=== PATIENT | male | born 1965 | race African-American/Black ===

== ENCOUNTER 2018-06-26 08:04 | Day surgery (SDC) | payer OTHER, SELFPAY ==
[2018-06-26 08:44] VITALS: BP 143/84; PULSE 87; RESP 16; TEMP 36.6; O2SAT 97; BMI 30.4
[2018-06-26] MEDS: SODIUM CHLORIDE 0.9% 1,000 ML 200 ML IV (08:50)
--- NOTE | 2018-06-26 09:24 | PM.HP.1 ---
History of Present Illness Date Patient Seen: 06/26/18 Time Patient Seen: 09:24 Chief complaint: colonoscopy 52604 Narrative: 53-year-old male who presents for colorectal screening. His last endoscopy was 2009. He reports the study was normal at that time. On further history today he denies any recent gastrointestinal symptoms. No nausea, vomiting, abdominal pain, loss of appetite, unexplained weight loss, change in bowel habits, diarrhea, constipation, melena, hematochezia, or bright red blood per rectum. Patient History Medical History Erectile disorder due to medical condition in male (Acute) Hypertension (Acute) Obstructive sleep apnea (Acute) Surgical History History of colonoscopy (Acute) History of repair of left rotator cuff (Acute) History of repair of right rotator cuff (Acute) Family & Social History Family History: Reviewed 06/26/18 by Ariel Brock MD Social History: household members spouse Nonsmoker Meds Home Medications Medication Instructions Recorded Confirmed Type sildenafil 25 mg PO DAILY PRN 06/26/18 06/26/18 History Allergies Allergy/AdvReac Type Severity Reaction Status Date / Time No Known Drug Allergies Allergy Verified 06/26/18 08:42 Review of Systems Review of Systems All systems reviewed & are unremarkable except as noted in HPI and below Exam Vital Signs (past 8 hours): - 06/26/18 08:44 Temperature 97.8 F Pulse Rate 87 Respiratory Rate 16 Blood Pressure 143/84 H Pulse Oximetry 97 Oxygen Delivery Method Room Air Narrative Exam Narrative: Well-nourished well-developed male in no acute distress. Alert orient x3. is at the bedside for my entire visit Sclera nonicteric Chest clear to auscultation bilaterally with regular rate and rhythm. No murmurs, gallops, rubs Abdomen soft, nondistended, nontender, no masses Extremities show no clubbing or cyanosis Objective Labs Labs: No recent laboratory or radiographic studies for review Assessment & Plan Plan: Assessment/Plan Narrative: 53-year-old male requiring colorectal screening by age criteria. Furthermore, it has been a number of years since his last examination. Colonoscopy is currently recommended. Technical details of the procedure were discussed. Risks, benefits, alternatives were explained. Risks including but not limited to sedation, aspiration, bleeding, pain, missed lesion, incomplete examination, need for further radiographic studies, colonic perforation, need for major abdominal surgery, and all attendant risks of major surgery were discussed in detail. All questions were answered to his satisfaction, and he voiced understanding. Consent was placed on the chart. We will proceed as above.
--- NOTE | 2018-06-26 09:29 | P.HP_ITS ---
History of Present Illness Date Patient Seen: 06/26/18 Time Patient Seen: 09:24 Chief complaint: colonoscopy 99018 Narrative: 53-year-old male who presents for colorectal screening. His last endoscopy was 2009. He reports the study was normal at that time. On further history today he denies any recent gastrointestinal symptoms. No nausea, vomiting, abdominal pain, loss of appetite, unexplained weight loss, change in bowel habits, diarrhea, constipation, melena, hematochezia, or bright red blood per rectum. Patient History Medical History Erectile disorder due to medical condition in male (Acute) Hypertension (Acute) Obstructive sleep apnea (Acute) Surgical History History of colonoscopy (Acute) History of repair of left rotator cuff (Acute) History of repair of right rotator cuff (Acute) Family & Social History Family History: Reviewed 06/26/18 by Ariel Brock MD Social History: household members spouse Nonsmoker Meds Home Medications Medication Instructions Recorded Confirmed Type sildenafil 25 mg PO DAILY PRN 06/26/18 06/26/18 History Allergies Allergy/AdvReac Type Severity Reaction Status Date / Time No Known Drug Allergies Allergy Verified 06/26/18 08:42 Review of Systems Review of Systems All systems reviewed & are unremarkable except as noted in HPI and below Exam Vital Signs (past 8 hours): - 06/26/18 08:44 Temperature 97.8 F Pulse Rate 87 Respiratory Rate 16 Blood Pressure 143/84 H Pulse Oximetry 97 Oxygen Delivery Method Room Air Narrative Exam Narrative: Well-nourished well-developed male in no acute distress. Alert orient x3. is at the bedside for my entire visit Sclera nonicteric Chest clear to auscultation bilaterally with regular rate and rhythm. No murmurs , gallops, rubs Abdomen soft, nondistended, nontender, no masses Extremities show no clubbing or cyanosis Objective Labs Labs: No recent laboratory or radiographic studies for review Assessment & Plan Plan: Assessment/Plan Narrative: 53-year-old male requiring colorectal screening by age criteria. Furthermore, it has been a number of years since his last examination. Colonoscopy is currently recommended. Technical details of the procedure were discussed. Risks, benefits, alternatives were explained. Risks including but not limited to sedation, aspiration, bleeding, pain, missed lesion, incomplete examination, need for further radiographic studies, colonic perforation, need for major abdominal surgery, and all attendant risks of major surgery were discussed in detail. All questions were answered to his satisfaction, and he voiced understanding. Consent was placed on the chart. We will proceed as above.
--- NOTE | 2018-06-26 09:29 | PM.PREOP ---
Pre-operative Note Interval Note Pre-op Check: Yes History & Physical Reviewed by Physician, Yes Exam Performed and Yes History & Physical exam performed today by Physician Changes: No H&P completed within 30 days and has changed as indicated here:: Patient seen and examined today. History physical examination documented and placed on the chart today. Proceed with colonoscopy as planned. ASA Class (for procedural sedation): II
[2018-06-26] MEDS: MIDAZOLAM 5 MG/5 ML VIAL IV (09:44)
[2018-06-26] MEDS: fentaNYL 250 MCG/5 ML INJ IV (09:44)
--- NOTE | 2018-06-26 09:52 | PM.OP.ENDO ---
Operative Date/Time/Diagnoses Date of procedure: 06/26/18 Time of procedure: 09:52 Pre-op diagnosis: Colorectal screening Post-op diagnosis: other (Normal colon and rectum) Procedure & Clinicians Study performed: 1. Sedation per surgeon 2. Colonoscopy Same procedure as scheduled: Yes Indications: 53-year-old male who presents for colorectal screening. It has been nearly 10 years since his last examination. Colonoscopy is once again recommended. Surgeon: Ariel Brock Procedure Notes SCOAP/Timeout: Yes Procedure in detail: After obtaining informed consent, the patient was brought to the GI suite and placed in the left lateral decubitus position on the examination table. After placement of appropriate monitors, the patient was given incremental doses of Versed and Fentanyl until an appropriate level of sedation was achieved. A time out was held per SCOAP protocol. A digital rectal examination was performed and did not reveal any masses or obstructing lesions. The colonoscope was gently passed into the patient's anus and the entire colon navigated to the level of the cecum with minimal difficulty. Once in the cecum, the scope was withdrawn being sure to go before and beyond all mucosal folds and prominences and get an excellent examination. The findings are noted above. At the level of the rectal vault, the scope was retroflexed and the internal anal canal was examined. The scope was straightened and air aspirated from the colon. The instrument was removed from the patient's body and the procedure was concluded. The patient was allowed to awaken from sedation without difficulty and taken to the post-anesthesia care unit in good condition. Scope withdrawal time: 7:36 min Sedation minutes: 21 Findings: other findings (Normal colon and rectum) Specimen(s): none sent Complications: none Recommendations: Colonscopy in 10 years and High fiber diet Plan for aftercare: 1. Discharged home Follow up: as needed Disposition: PACU
[2018-06-26 09:56] VITALS: BP 143/92; PULSE 90; RESP 12; O2SAT 99
[2018-06-26 10:01] VITALS: BP 132/97; PULSE 94; RESP 15; O2SAT 98
[2018-06-26 10:08] VITALS: BP 138/82; PULSE 85; RESP 15; TEMP 37; O2SAT 94
== END 2018-06-26 10:21 | disposition home or self-care (01) ==
PROVIDERS: Visit Provider Surgery
PROC: 0DJD8ZZ Inspection of Lower Intestinal Tract, Via Natural or Artificial Opening Endoscopic (ICD-10-PCS; CPT 45378; principal; 2018-06-26 09:45)
DX: Z12.11 Encounter for screening for malignant neoplasm of colon (principal); I10 Essential (primary) hypertension; G47.33 Obstructive sleep apnea (adult) (pediatric)
CPT/HCPCS: 45378; 99152; J2250; J3010

== ENCOUNTER → 2021-02-17 15:27 | Outpatient (CLI) | payer OTHER, SELFPAY ==
--- NOTE | 2021-02-17 15:31 | DI.MRI.S_ITS ---
PROCEDURE: MR LUMBAR SPINE WO CON INDICATIONS: Spinal stenosis, lumbar region with neurogenic cla TECHNIQUE: Noncontrast sagittal T1 spin echo and T2 fast echo, sagittal STIR, axial T1 and T2 fast spin echo through the lumbar spine. In cases with scoliosis, additional coronal T2 fast spin echo may be performed. COMPARISON: [facility], MR, L-SPINE WITHOUT CONTRAST, 11/27/2014, 18:04. FINDINGS: Image quality: Excellent. Alignment and Curvature: Straightening of the normal lordotic curvature. Bone Marrow: No evidence of acute fracture. Multilevel degenerative endplate sclerosis and spurring. Diffuse facet arthropathy. Spinal Cord: Conus medullaris terminates at the L1-L2 level. Visualized cord demonstrates normal signal and size. Paraspinous Soft Tissues: No paravertebral masses. T12-L1: Normal appearance. L1-L2: Normal appearance. L2-L3: Posterior annular fissure. Lfib-mj-fydmrmoa canal narrowing which appears progressed since the prior study. Partial effacement of both lateral recesses with bilaterally symmetric appearance. Moderate left foraminal stenosis with slight nerve root compression. This appears progressed since the prior study. Mild right foraminal narrowing which is unchanged L3-L4: No canal stenosis or lateral recess narrowing. Mild right foraminal stenosis. Moderate left foraminal stenosis with slight nerve root compression although this appears unchanged. L4-L5: No definite canal stenosis. Partial effacement of both lateral recesses with bilaterally symmetric appearance. Severe left foraminal narrowing with slight nerve root compression. Moderate right foraminal stenosis. Overall, no interval change since the prior study. L5-S1: No definite canal narrowing. Partial effacement of both lateral recesses with bilaterally symmetric appearance. Mild right foraminal narrowing. Mild left foraminal stenosis. IMPRESSION: Slight interval progression in L2-L3 left foraminal stenosis. Otherwise, grossly stable examination as detailed above by spinal level. Straightening of the normal lordotic curvature. Dictated by: Scooby Jesus M.D. on 02/17/2021 at 16:54 Approved by: Scooby Jesus M.D. on 02/17/2021 at 16:59
== END ==
PROVIDERS: Referring Provider Physical Medicine & Rehabilitation Pain Medicine; Visit Provider Physical Medicine & Rehabilitation Pain Medicine
DX: M48.062 Spinal stenosis, lumbar region with neurogenic claudication (principal)
CPT/HCPCS: 72148

== ENCOUNTER 2021-06-13 03:13 | Emergency (ER) | payer OTHER, SELFPAY ==
[2021-06-13] VITALS (20 sets, daily range): BP systolic 126–162; BP diastolic 73–103; PULSE 98–122; RESP 16–18; TEMP 36.4–37.2; O2SAT 97–100; BMI 28.8
[2021-06-13 03:51] LABS: Add Manual Diff / Slide Review NO; Basophils Absolute Auto 100 /uL (0-100); Basophils Percent Auto 0.7 % (0-2); Eosinophils Absolute Auto 0 /uL (0-450); Eosinophils Percent Auto 0.2 % (2-4); Hematocrit 37.2 % (41-53); Hemoglobin 12.2 g/dL (13.5-17.5); Lymphocytes Absolute Auto 2000 /uL (1100-4500); Lymphocytes Percent Auto 10.7 % (25-40); Mean Corpuscular HGB Conc 32.8 % (30-36); Mean Corpuscular Hemoglobin 26.8 PG (26-34); Mean Corpuscular Volume 81.9 fL (80-100); Monocytes Absolute Auto 1600 /uL (0-900); Monocytes Percent Auto 8.7 % (3-14); Neutrophils Absolute Auto 14800 /uL (1500-7000); Neutrophils Percent Auto 79.7 % (50-75); Platelet Count 278 X10^3/uL (150-400); Red Blood Cell Count 4.54 X10^6/uL (4.5-5.9); Red Cell Distribution Width 14.6 % (11.6-14.8); White Blood Cell Count 18.5 X10^3/uL (4.5-11.0)
--- NOTE | 2021-06-13 03:54 | ED_ITS ---
HPI - GI Bleed General Chief complaint: GI Bleed Stated complaint: states blood in stool Time Seen by Provider: 06/13/21 03:15 Source: patient Mode of arrival: Ambulatory Limitations: no limitations History of Present Illness HPI Narrative: 56-year-old male nonsmoker with noncontributory medical history presents with his in the chief complaint of a large amount of bright red blood associated with lower abdominal pain since having a very forceful and difficult bowel movement yesterday. He states that he was straining incredibly hard and felt pain in his lower abdomen and has passed multiple large, bright red stools since then. He takes no blood thinners. He is not dizzy nor weak or lightheaded. He denies fever or chills. He has had no nausea or vomiting. He does have a history of bleeding hemorrhoids but states this feels much different. Related Data Home Medications Medication Instructions Recorded Confirmed sildenafil 25 mg tablet 25 mg PO DAILY PRN 06/26/18 06/26/18 Allergies Allergy/AdvReac Type Severity Reaction Status Date / Time No Known Drug Allergies Allergy Verified 06/26/18 08:42 Review of Systems Review of Systems Narrative: GENERAL: Denies chills, fatigue, malaise, fever, sweats. HEENT: Denies sinus pain, ear pain, sore throat, difficulty swallowing, dizziness. RESPIRATORY: Denies dyspnea, cough, wheezing, hemoptysis, sputum. CARDIOVASCULAR: See HPI GASTROINTESTINAL: See HPI : Denies dysuria, frequency, incontinence, hematuria, urinary retention. MUSCULOSKELETAL: denies weakness, joint pain, or bony pain SKIN: Denies rash, skin lesions, or other NEUROLOGIC: Denies weakness, headache, numbness, change in speech, confusion, seizures, incoordination. PSYCHIATRIC: No concerning psychosocial issues. 12 point review of systems is negative except for those stated above Patient History Medical History Erectile disorder due to medical condition in male Hypertension Obstructive sleep apnea Surgical History History of colonoscopy History of repair of left rotator cuff History of repair of right rotator cuff Family History Sister Colon polyps Social History household members: spouse Smoking Status: Never smoker Smoking Status: Never smoker alcohol intake frequency: 3 or more drinks per day Substance Use Type: does not use Exam Narrative Exam Narrative: GENERAL: [56] year old patient appears stated age. Well-deve loped patient, in mild distress. Anxious HEAD: Atraumatic. Normocephalic. EYES: Pupils equal round and reactive. Extraocular motions intact. No scleral icterus. No injection or drainage. ENT: Nose without bleeding, purulent drainage. Throat without erythema, tonsillar hypertrophy or exudate. Airway patent. NECK: Trachea midline. Non tender CARDIOVASCULAR: Tachycardic but regular rhythm without murmurs, gallops, or rubs. RESPIRATORY: Clear to auscultation. Breath sounds equal bilaterally. No wheezes, rales, or rhonchi. GASTROINTESTINAL: Abdomen soft, tender in the suprapubic and left lower quadrant, nondistended. Bowel sounds present in all 4 quadrants RECTAL: No fissure, no external or internal hemorrhoids noted. Minimal pain, very minimal blood noted EXTREMITIES: No edema or joint tenderness. BACK: Nontender without deformity or crepitance. No flank tenderness. NEURO: AOx3. SKIN: No rash or erythema of visible areas Initial Vital Signs Initial Vital Signs: Vital Signs Temperature 97.5 F L 06/13/21 03:21 Pulse Rate 121 H 06/13/21 03:21 Respiratory Rate 17 06/13/21 03:21 Blood Pressure 162/103 H 06/13/21 03:21 Pulse Oximetry 99 06/13/21 03:21 Course Orders Ordered: ED Orders 06/13/21 03:40 Complete Blood Count AUTO DIFF Stat Comprehensive Metabolic Panel Stat Lactate (Lactic Acid) Stat Type and Screen Stat 06/13/21 03:55 CT abdomen pelvis w con Stat 06/13/21 05:15 COVID19 - ADMIT (GENERAL [employer]PER swab/PCR) Stat 06/13/21 05:30 Blood Culture Stat Clindamycin Phosphate (Cleocin) 900 mg in 50 mls @ 50 mls/hr IV NOW ONE Stop: 06/13/21 07:27 Last Admin: 06/13/21 06:37 Dose: 50 mls/hr Documented by: Lactated Ringer's (Lactated Ringers) 1,000 mls @ 1,000 mls/hr IV BOLUS ONE Stop: 06/13/21 07:36 Discontinued Medications Sodium Chloride (Normal Saline 0.9%) 1,000 mls @ 1,000 mls/hr IV BOLUS ONE Stop: 06/13/21 04:54 Last Infusion: 06/13/21 05:02 Dose: 0 mls/hr Documented by: Admin: 06/13/21 03:58 Dose: 1,000 mls/hr Documented by: KGRAJINDER Piperacillin Sod/Tazobactam (Sod 4.5 gm/ Sodium Chloride) 100 mls @ 200 mls/hr IV NOW ONE Stop: 06/13/21 05:14 Last Admin: 06/13/21 05:36 Dose: 200 mls/hr Documented by: MAURO Metronidazole (Flagyl) 500 mg in 100 mls @ 100 mls/hr IV NOW ONE Stop: 06/13/21 06:18 Last Admin: 06/13/21 05:56 Dose: 100 mls/hr Documented by: Consultations Consultation #1: discussed case with Dr. Alexandra upon receipt of CT. Need to transfer as OR is down at least today. Consultation #2: [facility]. No beds [place] No beds [facility]. No beds [facility]. No beds Consultation #3: has available beds, discussed with Dr. Mcclellan, happy to accept. Requests addition of Clinda and on going fluids Vital Signs Vital signs: Vital Signs - 8 hr 06/13/21 03:21 06/13/21 03:25 06/13/21 03:30 Temperature 97.5 F L Pulse Rate 121 H 121 H 122 H Respiratory Rate 17 Blood Pressure 162/103 H Pulse Oximetry 99 100 99 06/13/21 03:41 06/13/21 04:00 06/13/21 04:30 Temperature Pulse Rate 119 H 108 H 103 H Respiratory Rate Blood Pressure 136/90 126/79 Pulse Oximetry 99 99 100 06/13/21 04:43 06/13/21 05:00 06/13/21 05:30 Temperature 99 F Pulse Rate 112 H 104 H 112 H Respiratory Rate Blood Pressure 151/97 H 140/85 144/87 H Pulse Oximetry 100 100 99 06/13/21 06:00 06/13/21 06:30 Temperature Pulse Rate 111 H 111 H Respiratory Rate 16 16 Blood Pressure 150/78 H 146/86 H Pulse Oximetry 100 100 MDM - GI Bleed Lab Data Result diagrams: 06/13/21 03:40 06/13/21 03:40 Labs: Lab Results 06/13/21 06/13/21 06/13/21 Range/Units 03:40 03:40 03:40 WBC 18.5 H (4.5-11.0) X10^3/uL RBC 4.54 (4.5-5.9) X10^6/uL Hgb 12.2 L (13.5-17.5) g/dL Hct 37.2 L (41-53) % MCV 81.9 (80-100) fL MCH 26.8 (26-34) PG MCHC 32.8 (30-36) % RDW 14.6 (11.6-14.8) % Plt Count 278 (150-400) X10^3/uL Neut % (Auto) 79.7 H (50-75) % Lymph % (Auto) 10.7 L (25-40) % Swisher % (Auto) 8.7 (3-14) % Eos % (Auto) 0.2 L (2-4) % Baso % (Auto) 0.7 (0-2) % Neut # (Auto) 85454 H (5311-7022) /uL Lymph # (Auto) 2000 (9735-6753) /uL Swisher # (Auto) 1600 H (0-900) /uL Eos # (Auto) 0 (0-450) /uL Baso # (Auto) 100 (0-100) /uL Sodium 135 L (137-145) mmol/L Potassium 4.0 (3.4-5.1) mmol/L Chloride 104 (98-107) mmol/L Carbon Dioxide 25 (22-32) mmol/L BUN 20 (9-20) mg/dL Creatinine 1.27 H (0.66-1.25) mg/dL Estimated GFR 58.5 L (>60) mL/min BUN/Creatinine Ratio 15.7 (6-22) Glucose 129 H (70-100) mg/dL Lactate (0.7-2.1) mmol/L Calcium 8.8 (8.4-10.2) mg/dL Total Bilirubin 1.0 (0.2-1.3) mg/dL AST 24 (17-59) IU/L ALT 21 (<50) IU/L Alkaline Phosphatase 77 (38-126) U/L Total Protein 7.3 (6.3-8.2) g/dL Albumin 4.3 (3.5-5.0) g/dL Globulin 3.0 (1.7-4.1) g/dL Albumin/Globulin Ratio 1.4 (1.0-2.8) SARS-CoV-2 (PCR) (Negative) Blood Type O Positive Antibody Screen Negative 06/13/21 06/13/21 Range/Units 03:40 05:15 WBC (4.5-11.0) X10^3/uL RBC (4.5-5.9) X10^6/uL Hgb (13.5-17.5) g/dL Hct (41-53) % MCV (80-100) fL MCH (26-34) PG MCHC (30-36) % RDW (11.6-14.8) % Plt Count (150-400) X10^3/uL Neut % (Auto) (50-75) % Lymph % (Auto) (25-40) % Swisher % (Auto) (3-14) % Eos % (Auto) (2-4) % Baso % (Auto) (0-2) % Neut # (Auto) (0647-2859) /uL Lymph # (Auto) (3147-5958) /uL Swisher # (Auto) (0-900) /uL Eos # (Auto) (0-450) /uL Baso # (Auto) (0-100) /uL Sodium (137-145) mmol/L Potassium (3.4-5.1) mmol/L Chloride (98-107) mmol/L Carbon Dioxide (22-32) mmol/L BUN (9-20) mg/dL Creatinine (0.66-1.25) mg/dL Estimated GFR (>60) mL/min BUN/Creatinine Ratio (6-22) Glucose (70-100) mg/dL Lactate 1.4 (0.7-2.1) mmol/L Calcium (8.4-10.2) mg/dL Total Bilirubin (0.2-1.3) mg/dL AST (17-59) IU/L ALT (<50) IU/L Alkaline Phosphatase (38-126) U/L Total Protein (6.3-8.2) g/dL Albumin (3.5-5.0) g/dL Globulin (1.7-4.1) g/dL Albumin/Globulin Ratio (1.0-2.8) SARS-CoV-2 (PCR) Negative (Negative) Blood Type Antibody Screen Urine Dip Bedside Urine Glucose Negative Bedside Urine Bilirubin - Negative Bedside Urine Ketone - Negative Urine Specific [place] 1.010 Bedside Urine Occult Blood - Negative Bedside Urine pH 6.0 Bedside Urine Protein - Negative Bedside Urine Urobilinogen - Negative Bedside Urine Nitrite - Negative Bedside Urine Leukocytes - Negative Esterase Imaging Data CT scan - abdomen/pelvis: Radiologist's Impression: Proctitis and distal sigmoid colitis with perforation at the rectosigmoid junction, retroperitoneal gas tract superiorly to the left perinephric region Critical Care Time Critical Care Time Critical Care Time: Yes Total Critical Care Time: 45 Attestation: The high probability of a clinically significant, sudden or life threatening deterioration of the [CV/GI] system(s) required my full and direct attention, intervention and personal management. The aggregate critical care time was [45] minutes. This time is in addition to time spent performing reported procedures but includes the following: [x] Data Review and interpretation [x] Patient assessment and monitoring of vital signs [x] Documentation [x] Medication orders and management Discharge Plan Departure Patient Disposition: [facility] Clinical Impression: Colon perforation, Lower gastrointestinal hemorrhage, Acute proctitis Activity Restrictions/Additional Instructions: *You have been diagnosed with [lower gastrointestinal bleed] *What to do: *Please continue to take your regular medications as directed. [ ] New medication prescriptions sent to your pharmacy: [ ] [ ] New medication written as a paper prescription [x ] No new medications given *Please follow up with your primary care provider in 2-3 days, call for an appointment. Let them know you were seen in the Emergency Department and that we ask that you be seen in follow up. We will electronically transmit a record of today's note if your PCP is in our system *If you do not have a primary care provider please contact the [facility] Resource line at [phone]. They will ask some questions about your medical history and help get you set up with a doctor in the community. *Return to Emergency Department if you should have any new, worsening or concerning symptoms, such as [fever greater than 101 F, shaking chills, worsening pain, persistent vomiting or other bothersome symptoms] Prescriptions: No Action sildenafil 25 mg Tablet 25 mg PO DAILY PRN (Reason: Sexual Activity) RF: 0
--- NOTE | 2021-06-13 03:55 | DI.CT.S_ITS ---
PROCEDURE: CT ABDOMEN PELVIS W CON INDICATIONS: severe abdominal pain and bleeding TECHNIQUE: After the administration of oral and intravenous contrast, axial sections were acquired from the lung bases to the pubic symphysis. Coronal and sagittal reformats were performed. For radiation dose reduction, the following was used: automated exposure control, adjustment of mA and/or kV according to patient size. COMPARISON:None. FINDINGS: Image quality: Excellent. Lung bases: Lung bases are clear. Heart size is normal. Solid organs: Liver: The liver has no mass or intrahepatic biliary ductal dilatation. The portal vein and hepatic veins are patent. Biliary: The gallbladder has no gallstones, pericholecystic fluid, gallbladder wall thickening, or surrounding inflammatory change. Pancreas: The pancreas has no mass or ductal dilatation. There is no surrounding inflammation. Spleen: Normal size. There are no masses. Adrenals: No hypertrophy or nodules. Kidneys: No obstructive calculus or hydronephrosis. No solid mass. No cystic mass. Peritoneum and bowel: The distal esophagus and stomach are normal. The small bowel has a normal caliber and appearance. The terminal ileum is normal. There is marked thickening of the rectum and distal sigmoid colon. There is evidence of perforation at the rectosigmoid junction with retroperitoneal gas tracking superiorly in the left perinephric region. There is no discrete fluid collection. No free fluid or air. Nodes and vessels: No retroperitoneal or mesenteric adenopathy by size criteria. Aorta and inferior vena cava are normal in size. Miscellaneous: No abdominal wall mass or hernia. PELVIS: Genitourinary: The bladder has no wall thickening or mass. No bladder calcifications. Miscellaneous: No inguinal hernias or adenopathy. Bones: No suspicious bony lesions. No vertebral body compression fractures. IMPRESSION: Proctitis/distal sigmoid colitis with perforation at the rectosigmoid junction region. Retroperitoneal gas tracks superiorly to the left perinephric level. No discrete abscess. Comment: Final report is concordant with preliminary interpretation by [facility] Dictated by: Beni Braun M.D. on 06/13/2021 at 6:42 Approved by: Beni Braun M.D. on 06/13/2021 at 6:47
[2021-06-13] MEDS: SODIUM CHLORIDE 0.9% 1,000 ML 1000 ML IV (03:58)
[2021-06-13 04:02] LABS: Alanine Aminotransferase 21 IU/L (<50); Albumin 4.3 g/dL (3.5-5.0); Albumin Globulin Ratio 1.4 (1.0-2.8); Alkaline Phosphatase 77 U/L (38-126); Aspartate Aminotransferase 24 IU/L (17-59); BUN Creatinine Ratio 15.7 (6-22); Blood Urea Nitrogen 20 mg/dL (9-20); Calcium 8.8 mg/dL (8.4-10.2); Carbon Dioxide 25 mmol/L (22-32); Chloride 104 mmol/L (98-107); Estimated Glomerular Filt Rate 58.5 mL/min (>60); Glucose 129 mg/dL (70-100); HEMOLYSIS < 15 (0-50); Sodium 135 mmol/L (137-145); Total Protein 7.3 g/dL (6.3-8.2)
[2021-06-13 05:35] LABS: Lactate (Lactic Acid) 1.4 mmol/L (0.7-2.1)
[2021-06-13] MEDS: PIPERACILLIN/TAZO 4.5 GM in SODIUM CHLORIDE 0.9% 100 ML 200 ML IV (05:36)
[2021-06-13] MEDS: metroNIDAZOLE 500 MG/100 ML PIGGYBACK 100 MG IV (05:56)
[2021-06-13 06:16] LABS: COVID19 - ADMIT (NP swab/PCR) Negative (Negative)
[2021-06-13] MEDS: CLINDAMYCIN 900 MG/50 ML PIGGYBACK 50 MG IV (06:37)
[2021-06-13] MEDS: LACTATED RINGERS 1,000 ML 1000 ML IV (07:07)
== END 2021-06-13 09:58 | disposition short-term general hospital (02) ==
PROVIDERS: Emergency Provider Emergency Medicine
DX: K92.2 Gastrointestinal hemorrhage, unspecified (principal); K63.1 Perforation of intestine (nontraumatic); K62.89 Other specified diseases of anus and rectum; R10.30 Lower abdominal pain, unspecified; Z20.822 Contact with and (suspected) exposure to COVID-19
CPT/HCPCS: 36415; 74177; 80053; 81003; 83605; 85025; 86850; 86900; 86901; 87040; 87635; 96361; 96365; 96367; 99284; 99291; C9803; J2543; Q9967

== ENCOUNTER → 2024-03-12 11:39 | Outpatient (CLI) | payer OTHER, SELFPAY ==
--- NOTE | 2024-03-12 11:43 | DI.RAD.S_ITS ---
PROCEDURE: XR KNEE LT 3V INDICATIONS: ARTHRITIS TECHNIQUE: 3 views of the knee were acquired. COMPARISON: None. FINDINGS: Bones: Mild degenerative changes. No acute displaced fracture or dislocation. Patellar enthesopathy Soft tissues: Small joint fluid. IMPRESSION: Overall mild degenerative changes. No acute radiographic abnormality. Small joint fluid. If there is high concern for further derangement, consider MRI evaluation. Dictated by: Kasi Santos M.D. on 03/12/2024 at 15:42 Approved by: Kasi Santos M.D. on 03/12/2024 at 15:43
--- NOTE | 2024-03-12 11:44 | DI.RAD.S_ITS ---
PROCEDURE: XR KNEE RT 3V INDICATIONS: ARTHRITIS TECHNIQUE: 3 views of the knee were acquired. COMPARISON: None. FINDINGS: Bones: No acute displaced fracture or dislocation. Overall mild degenerative changes. Extensor mechanism enthesopathy. Soft tissues: Mild joint effusion. IMPRESSION: Mild degenerative changes and joint effusion. Extensor mechanism enthesopathy. If there is high concern for further derangement, consider MRI evaluation. Dictated by: Kasi Santos M.D. on 03/12/2024 at 15:43 Approved by: Kasi Santos M.D. on 03/12/2024 at 15:43
== END ==
PROVIDERS: Referring Provider Chiropractor; Visit Provider Chiropractor
DX: M13.80 Other specified arthritis, unspecified site (principal); M25.461 Effusion, right knee
CPT/HCPCS: 73562

== ENCOUNTER → 2024-06-11 11:00 | Outpatient (CLI) | payer OTHER, SELFPAY ==
[2024-06-11 11:35] LABS: Appearance Urine UA CLEAR; Bilirubin Urine UA NEGATIVE (NEGATIVE); Color Urine UA YELLOW; Glucose Urine UA NEGATIVE (Negative); Ketones Urine UA NEGATIVE (NEGATIVE); Leukocyte Esterase Urine UA NEGATIVE (NEGATIVE); Nitrite Urine UA NEGATIVE (Negative); Occult Blood Urine UA NEGATIVE (Negative); Protein Urine UA NEGATIVE (Negative); Urobilinogen Urine UA 0.2 E.U./dL (0.2); pH Urine UA 5.5 (4.5-8.0)
[2024-06-11 11:49] LABS: Urine Volume 10mL (spun)
[2024-06-11 11:50] LABS: Bacteria Urine Occasional (0-1); Culture Indicated Urine Cult Not Indicated; RBC Urine 0-1/HPF (0-5/HPF); Squamous Epithelial Cell Urine 0-1 /HPF (0-5/HPF); WBC Urine 0-1/HPF (0-5/HPF)
== END ==
LOC: LAB 11:01
PROVIDERS: Referring Provider Chiropractor; Visit Provider Chiropractor
DX: E11.9 Type 2 diabetes mellitus without complications (principal)
CPT/HCPCS: 81001

== ENCOUNTER 2024-09-10 07:29 | Day surgery (SDC) | payer OTHER, SELFPAY ==
--- NOTE | 2024-09-10 | PATH_ITS ---
[facility] Accession Number: [id number] No. of containers..02 Tissue . 01 Material submitted: . PART A: duodenum - DUODENAL PART B: gastrointestinal site - STOMACH . 01 Clinical history: . A: R/O CELIAC B: R/O HP . 01 Diagnosis: Part A: DUODENAL: Duodenal mucosa with no diagnostic alterations. No active inflammation and no evidence of celiac disease. . Part B: STOMACH: Gastric mucosa with mild chronic inflammation. No Helicobacter organisms identified. No intestinal metaplasia, dysplasia, or malignancy identified. RUST 09/13/20241838 Local . 01 Electronically signed: . Sergio Avitia MD, Pathologist NPI- [id number] . 01 Gross description: . A. Received in formalin with two patient identifiers and duodenal, are two briggs soft tissue fragments both measuring 0.4 cm in greatest dimension. Submitted in cassette A1. . B. Received in formalin with two patient identifiers and stomach, are two briggs soft tissue fragments 0.2 to 0.5 cm in greatest dimension. Submitted in cassette B1. ([id number]) /SHIRA 09/13/20241838 Local . 01 Microscopic: . Part B: STOMACH: An immunohistochemical stain was performed to evaluate for Helicobacter organisms and is negative. The control stains appropriately. * This test was developed and the performance characteristics were validated by [facility]. It has not been cleared or approved by the Food and Drug Administration. . 01 Pathologist provided ICD-10: K29.50 . 01 CPT . 045685, 569514, U69311 Specimen Comment: A courtesy copy of this report has been sent to [phone] Performed at: [address] [id number] MD Sergio Avitia MD Phone: [phone]
[2024-09-10 07:48] VITALS: BP 137/90; PULSE 101; RESP 17; TEMP 36.5; O2SAT 99
--- NOTE | 2024-09-10 08:44 | P.HP_ITS ---
History of Present Illness History of Present Illness [place] [facility] [place]: Iron deficiency anemia [facility] Medical History (Updated 06/28/21 @ 00:01 by ) Obstructive sleep apnea Erectile disorder due to medical condition in male Hypertension Surgical History History of repair of left rotator cuff History of repair of right rotator cuff History of colonoscopy Family History Sister Colon polyps Social History household members: spouse Smoking Status: Never smoker alcohol intake: current Meds Home Medications and Allergies Home Medications Medication Instructions Recorded Confirmed Type sildenafil 25 mg tablet 25 mg PO DAILY PRN Sexual Activity 06/26/18 06/26/18 History atorvastatin 20 mg tablet 20 mg PO DAILY 09/10/24 09/10/24 History telmisartan 20 mg tablet 40 mg PO DAILY 09/10/24 09/10/24 History Allergies Allergy/AdvReac Type Severity Reaction Status Date / Time No Known Drug Allergies Allergy Verified 09/10/24 07:45 Exam Vital Signs (past 8 hours): - 09/10/24 07:48 Temperature 97.7 F Pulse Rate 101 H Respiratory Rate 17 Blood Pressure 137/90 Pulse Oximetry 99 Oxygen Delivery Method Room Air Oxygen Delivery Method Room Air Narrative Exam Narrative: Oropharynx free of lesions Chest clear to auscultation percussion Cardiac exam reveals no S3 or murmur Assessment & Plan Assessment & Plan narrative: Iron deficiency anemia need for further workup. EGD and colonoscopy to be performed. Risks, benefits, alternatives explained. Time-Based Coding :: [TOTAL MINUTES] spent with patient and on the chart (including review of chart, obtaining history, exam, reviewing outside data, placing orders, documenting exam and treatment plan, and counseling patient) on [DATE].
--- NOTE | 2024-09-10 08:45 | PM.OP.EC ---
Operative Date/Time/Diagnoses Date of procedure: 09/10/24 Pre-op diagnosis: See indication and findings Procedure & Clinicians Study performed: EGD and colonoscopy Indications: Iron-deficiency anemia Surgeon: Nelly Lucero Procedure Notes Procedure in detail: After informed consent was obtained the patient was placed in left lateral decubitus position. The video upper scope was placed into the oropharynx and with the patient's help swallowed into the esophagus. The esophagus stomach and duodenal were carefully examined. On withdrawal, retroflexed view the GE junction was performed. The scope was removed. The patient tolerated procedure well. The patient was then turned and the colonoscope substituted. This was placed the rectum and eventually passed the cecum. Preparation was good. On slow withdrawal mucosa was carefully examined. The scope was removed. The patient tolerated procedure well. Blood loss none Complications none Sedation mac Findings EGD 1. Normal esophagus 2. Patchy and reticulated erythema in the stomach biopsies taken to rule out Helicobacter 3. Normal duodenal bulb and sweep biopsies taken to rule out celiac Colonoscopy 1. Moderate internal hemorrhoids 2. Otherwise negative colonoscopy to cecum Patient should have follow-up colonoscopy in 10 years. He should also be placed on iron supplements for the next 1-2 months and then have labs rechecked. His iron deficiency is quite mild and I expect it will resolve easily.
[2024-09-10 09:38] VITALS: BP 137/87; PULSE 110; RESP 13; TEMP 36.3; O2SAT 98
[2024-09-10 09:43] VITALS: BP 135/83; PULSE 103; RESP 19; O2SAT 97
[2024-09-10 09:55] VITALS: BP 113/85; PULSE 108; RESP 79; TEMP 36.3; O2SAT 99
== END 2024-09-10 10:03 | disposition home or self-care (01) ==
PROVIDERS: Referring Provider Internal Medicine Gastroenterology; Visit Provider Internal Medicine Gastroenterology
PROC: 0DJ08ZZ Inspection of Upper Intestinal Tract, Via Natural or Artificial Opening Endoscopic (ICD-10-PCS; CPT 45378; principal; 2024-09-10 09:00)
PROC: 0DJD8ZZ Inspection of Lower Intestinal Tract, Via Natural or Artificial Opening Endoscopic (ICD-10-PCS; CPT 45378; 2024-09-10 09:00)
DX: D50.9 Iron deficiency anemia, unspecified (principal); K64.8 Other hemorrhoids; K29.50 Unspecified chronic gastritis without bleeding
CPT/HCPCS: 45378; 43239; J2704